=== PATIENT | male | born 1935 | race African-American/Black ===

== ENCOUNTER 2021-03-17 14:35 | Emergency (ER) | payer MEDICARE, MEDICAID ==
[~2021-03-17] VITALS: Ht 180.3 cm; Wt 83.9 kg
--- NOTE | 2021-03-17 14:48 | NUR ---
BIB [facility] FOR BLOGO CLUCOSE LEVEL >500 SINCE THIS MORNING. GIVEN 400ML NORMAL SALINE BY [facility]. PT DENIES ANY SYMPTOMS. AAOX4. BREATHING EVEN AND UNLABORED. SKIN WARM AND DRY, ASSISTED TO ER BED 4. AWAITING MD FOR EVAL
--- NOTE | 2021-03-17 15:09 | NUR ---
GRAND DAUGHTER: [facility] [phone]
--- NOTE | 2021-03-17 15:10 | NUR ---
BLOOD GLUCOSE 454. AWARE.
[2021-03-17 15:26] VITALS: BP 120/72
[2021-03-17] MEDS ORDERED: IV NS 0.9% 500 ML BAG IV ONE (15:30)
--- NOTE | 2021-03-17 15:30 | NUR ---
IV FLUIDS RUNNING. PT TOLERATING WELL
--- NOTE | 2021-03-17 17:00 | NUR ---
URINE SAMPLE OBTAINED AND SENT TO LAB
--- NOTE | 2021-03-17 17:30 | NUR ---
PT DENIED BLOOD DRAW
--- NOTE | 2021-03-17 17:32 | NUR ---
Andrew ybarra in ED - 03/17/21 at 1831 by ZA PT LEFT AMA. SPOKE TO PT AND EXPLAINED THE RISKS OF LEAVING THE HOSPITAL AGAINST MEDICAL ADVICE. PT STILL DECIDED TO LEAVE
--- NOTE | 2021-03-17 18:00 | NUR ---
PT LEFT AMA. SPOKE TO PT AND EXPLAINED THE RISKS OF LEAVING THE HOSPITAL AGAINST MEDICAL ADVICE. PT STILL DECIDED TO LEAVE
[2021-03-17 18:13] LABS: BILIRUBIN,URINE Negative (NEGATIVE); COLOR,URINE YELLOW (YELLOW); LEUKOCYTE ESTERASE ,URINE Negative (NEGATIVE); NITRITE, URINE Negative (NEGATIVE); PROTEIN,URINE Negative (NEGATIVE); UGLUCOSE 500 MG/DL mg/dL (NEGATIVE); UROBILINOGEN,URINE 0.2 EU/dL (0.2)
== END 2021-03-17 18:00 | disposition left against medical advice (07) ==
LOC: ER 14:40
DX: E11.65 Type 2 diabetes mellitus with hyperglycemia (principal); I10 Essential (primary) hypertension; Z95.0 Presence of cardiac pacemaker
CPT/HCPCS: 71045; 81003; 82962; 99284; J7040